=== PATIENT | female | born 1950 | race Caucasian/White ===

== ENCOUNTER 2020-06-04 20:41 | Observation (INO) | payer BC, MEDICARE ==
--- NOTE | 2020-06-04 21:10 | EDM.PDOC ---
ED HPI GENERAL MEDICAL PROBLEM - General Chief Complaint: Gastrointestinal Problem Time Seen by Provider: 06/04/20 21:01 Source of Information: Reports: Patient, EMS History Limitations: Reports: No Limitations - History of Present Illness INITIAL COMMENTS - FREE TEXT/NARRATIVE: Patient presents by ambulance from her cabin in the area describing nausea and vomiting for the last 48 hours. She is visiting the area from her home in [place]. She and her son were here although he went home on Monday. Her symptoms were not as bad when he departed for home that have progressed since then. She has not really had any food to eat for the last 2 days she has tried minimal amounts of liquid and does not have large-scale vomiting anymore but has frequent retching sensation and generally small amounts of mucus production at this point. No diarrhea but she is had softer stools. She does not think she has been feverish but the cabin she stays in is not well insulated. Principally because of lack of improvement, she contacted 911 who transported her here tonight. Onset: Gradual Duration: Day(s): (4) Location: Reports: Abdomen Associated Symptoms: Reports: Nausea/Vomiting denies pain Pain Score (Numeric/FACES): 0 - Related Data Allergies Allergy/AdvReac Type Severity Reaction Status Date / Time codeine Allergy Stomach Verified 06/04/20 20:51 Ache gabapentin [From Neurontin] Allergy Disorientat Verified 06/04/20 20:51 ion Home Meds: Home Meds Cyclobenzaprine HCl 5 mg PO ASDIRECTED PRN 06/04/20 [History] Dulaglutide [Trulicity] 1 injection SUBCUT WEEKLY 06/04/20 [History] Pregabalin [Lyrica] 300 mg PO BID 06/04/20 [History] Spironolactone [Aldactone] 50 mg PO BID 06/04/20 [History] Zolpidem [Ambien] 2.5 mg PO ASDIRECTED PRN 06/04/20 [History] atorvaSTATin [Lipitor] 20 mg PO DAILY 06/04/20 [History] glipiZIDE [Glucotrol XL] 5 mg PO BID 06/04/20 [History] metFORMIN [Glucophage] 1,000 mg PO DAILY 06/04/20 [History] Past Medical History Cardiovascular History: Reports: Heart Murmur Respiratory History: Reports: PE Gastrointestinal History: Reports: Cholelithiasis 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 Denies: Fever, Chills HEENT: Reports: No Symptoms Respiratory: Reports: No Symptoms Cardiovascular: Reports: Lightheadedness GI/Abdominal: Reports: Nausea, Vomiting. Denies: Black Stool, Bloody Stool, Diarrhea (She describes soft stools but no diarrhea.) ED EXAM, GI/ABD - Physical Exam Exam: See Below Exam Limited By: No Limitations General Appearance: Alert, Mild Distress Head: Atraumatic Neck: Supple Respiratory/Chest: Lungs Clear Cardiovascular: Bradycardia GI/Abdominal Exam: Soft, Tender (Diffuse), Abnormal Bowel Sounds (Diminished.). No: Distended, Rigid, Mass Extremities: Normal Range of Motion Course - Vital Signs Last Recorded V/S: Last Vital Signs Temp 36.4 C 06/04/20 21:00 Pulse 53 L 06/04/20 21:42 Resp 17 06/04/20 21:00 BP 181/60 H 06/04/20 21:42 Pulse Ox 99 06/04/20 21:42 - Orders/Labs/Meds Orders: Active Orders 24 hr Category Date Time Status Abdomen 1V Upright [CR] Stat Exams 06/04/20 22:28 Ordered Sodium Chloride 0.9% [Normal Saline] 1,000 ml Med 06/04/20 22:40 Ordered IV .BOLUS Sodium Chloride 0.9% [Saline Flush] Med 06/04/20 21:30 Ordered 10 ml FLUSH ASDIRECTED PRN Saline Lock Insert [OM.PC] Routine Oth 06/04/20 21:30 Ordered Medication Orders Sodium Chloride (Normal Saline) 1,000 mls @ 999 mls/hr IV .BOLUS ONE Stop: 06/04/20 23:40 Sodium Chloride (Saline Flush) 10 ml FLUSH ASDIRECTED PRN PRN Reason: Keep Vein Open Last Admin: 06/04/20 21:46 Dose: 10 ml Documented by: Labs: Laboratory Tests 06/04/20 06/04/20 Range/Units 21:30 21:30 WBC 12.0 H (4.5-11.0) K/uL RBC 5.20 (3.30-5.50) M/uL Hgb 15.3 H (12.0-15.0) g/dL Hct 45.5 (36.0-48.0) % MCV 88 (80-98) fL MCH 29 (27-31) pg MCHC 34 (32-36) % Plt Count 348 (150-400) K/uL Neut % (Auto) 68 H (36-66) % Lymph % (Auto) 25 (24-44) % Long % (Auto) 7 H (2-6) % Eos % (Auto) 0 L (2-4) % Baso % (Auto) 0 (0-1) % Sodium 140 (140-148) mmol/L Potassium 4.1 (3.6-5.2) mmol/L Chloride 100 (100-108) mmol/L Carbon Dioxide 21 (21-32) mmol/L Anion Gap 18.7 H (5.0-14.0) mmol/L BUN 25 H (7-18) mg/dL Creatinine 1.3 H (0.6-1.0) mg/dL Est Cr Clr Drug Dosing 34.26 mL/min Estimated GFR (MDRD) 41 L (>60) Glucose 195 H (74-106) mg/dL Calcium 9.9 (8.5-10.1) mg/dL Total Bilirubin 1.2 H (0.2-1.0) mg/dL AST 93 H (15-37) U/L ALT 60 (12-78) U/L Alkaline Phosphatase 67 (46-116) U/L Total Protein 8.1 (6.4-8.2) g/dL Albumin 4.0 (3.4-5.0) g/dL Globulin 4.1 H (2.3-3.5) g/dL Albumin/Globulin Ratio 1.0 L (1.2-2.2) Lipase 170 (73-393) U/L Meds: Medications Generic Name Dose Route Start Last Admin Trade Name Freq PRN Reason Stop Dose Admin Sodium Chloride 1,000 mls @ 999 mls/hr 06/04/20 22:40 Normal Saline IV 06/04/20 23:40 .BOLUS ONE Sodium Chloride 10 ml 06/04/20 21:30 06/04/20 21:46 Saline Flush FLUSH 10 ml ASDIRECTED PRN Administration Keep Vein Open Discontinued Medications Generic Name Dose Route Start Last Admin Trade Name Theodore PRN Reason Stop Dose Admin Famotidine 20 mg 06/04/20 21:51 06/04/20 22:01 Pepcid IVPUSH 06/04/20 21:52 20 mg ONETIME ONE Administration Sodium Chloride 1,000 mls @ 999 mls/hr 06/04/20 21:30 06/04/20 21:39 Normal Saline IV 06/04/20 22:30 999 mls/hr .BOLUS ONE Administration Ondansetron HCl 4 mg 06/04/20 21:31 06/04/20 21:45 Zofran IVPUSH 06/04/20 21:32 4 mg ONETIME ONE Administration Ondansetron HCl 4 mg 06/04/20 22:44 Zofran IVPUSH 06/04/20 22:45 ONETIME ONE - Re-Assessments/Exams Free Text/Narrative Re-Assessment/Exam: 06/04/20 21:33 Patient will receive normal saline 1 L by rapid infusion along with ondansetron 4 mg and famotidine 20 mg IV. 06/04/20 21:51 06/04/20 22:29 Heartburn feelings have improved following medication but she still has nausea and will cough/vomit up small amounts of mucus. No projectile vomiting. She is slightly dehydrated by lab evaluation. We will obtain an upright abdomen x-ray to look for overall bowel gas pattern although she does not classically seem like a bowel obstruction. 06/04/20 22:48 I discussed imaging results which do not show any obvious air-fluid levels. There is some scattered pocketing of gas throughout the bowel but nothing alarming appearing. Nausea is only slightly improved so I will give her another 4 mg of ondansetron. I think she will benefit from admission for further hydration and symptom control. Reviewed admission with hospital service to arrange admit and further care. Departure - Departure Time of Disposition: 22:50 Disposition: Admitted As Inpatient 67 Clinical Impression: Vomiting - Discharge Information Referrals: PCP,None [Primary Care Provider] - Forms: ED Department Discharge Sepsis Event Note (ED) - Evaluation Sepsis Screening Result: No Definite Risk - Focused Exam Vital Signs: Vital Signs Temp Pulse Resp BP Pulse Ox 06/04/20 21:42 53 L 181/60 H 99 06/04/20 21:00 36.4 C 55 L 17 122/70 99 06/04/20 20:58 36.4 C 55 L 17 122/70 99 - My Orders Last 24 Hours: My Active Orders 06/04/20 21:30 Sodium Chloride 0.9% [Saline Flush] 10 ml FLUSH ASDIRECTED PRN Saline Lock Insert [OM.PC] Routine 06/04/20 22:28 Abdomen 1V Upright [CR] Stat 06/04/20 22:40 Sodium Chloride 0.9% [Normal Saline] 1,000 ml IV .BOLUS - Assessment/Plan Last 24 Hours: My Active Orders 06/04/20 21:30 Sodium Chloride 0.9% [Saline Flush] 10 ml FLUSH ASDIRECTED PRN Saline Lock Insert [OM.PC] Routine 06/04/20 22:28 Abdomen 1V Upright [CR] Stat 06/04/20 22:40 Sodium Chloride 0.9% [Normal Saline] 1,000 ml IV .BOLUS
[2020-06-04] MEDS ORDERED: Sodium Chloride 0.9% 10 ML Syringe FLUSH PRN (21:30)
[2020-06-04] MEDS ORDERED: Sodium Chloride 0.9% 1,000 ML IV ONE ×2 (21:30→22:40)
[2020-06-04] MEDS ORDERED: Ondansetron 4 MG/2 ML SDV IVPUSH ONE ×2 (21:31→22:44)
[2020-06-04] MEDS ORDERED: Famotidine 20 MG/2 ML SDV IVPUSH ONE (21:51)
[2020-06-04] MEDS ORDERED: Acetaminophen 325 MG Tab PO PRN (23:45)
[2020-06-04] MEDS ORDERED: Zolpidem 5 MG Tab PO PRN (23:45)
[2020-06-04] MEDS ORDERED: Morphine 2 MG/ML SYRINGE IVPUSH PRN (23:45)
[2020-06-04] MEDS ORDERED: Ondansetron 4 MG Tab.DIS PO PRN (23:45)
[2020-06-04] MEDS ORDERED: Albuterol 0.083% 2.5 MG/3 ML Neb Soln NEB PRN (23:45)
[2020-06-04] MEDS ORDERED: Docusate Sodium 100 MG Cap PO PRN (23:45)
[2020-06-04] MEDS ORDERED: oxyCODONE 5 MG Tab PO PRN (23:45)
[2020-06-04] MEDS ORDERED: Ondansetron 4 MG/2 ML SDV IV PRN (23:45)
--- NOTE | 2020-06-05 00:05 | PCM.HP.2 ---
H&P History of Present Illness - General Date of Service: 06/04/20 Admit Problem/Dx: Admission Diagnosis/Problem Admission Diagnosis/Problem Dehydration Source of Information: Patient, Provider, RN History Limitations: Reports: No Limitations - History of Present Illness Initial Comments - Free Text/Narative: chief compliant: nausea and vomiting for 2 days This is a 69 year old female present to the ER for nausea and vomiting. She report just starting vomiting late Monday and hasn't stopped. Last meal two days ago has not taking her medications except for half a Metformin. She lives in [facility] and has a summer cabin in the area. Onset of Symptoms: Reports: Gradual Symptom Onset Date: 06/02/20 Duration of Symptoms: Reports: Getting Worse Location: Reports: Abdomen (nausea and vomiting), Generalized Severity: Moderate Improves with: Reports: None Worsens with: Reports: Eating Context: Reports: Other (nausea and vomiting) Associated Symptoms: Reports: Loss of Appetite, Nausea/Vomiting, Weakness denies pain Pain Score (Numeric/FACES): 0 - Related Data Allergies/Adverse Reactions: Allergies Allergy/AdvReac Type Severity Reaction Status Date / Time codeine Allergy Stomach Verified 06/04/20 20:51 Ache gabapentin [From Neurontin] Allergy Disorientat Verified 06/04/20 20:51 ion Home Medications: Home Meds Cyclobenzaprine HCl 5 mg PO ASDIRECTED PRN 06/04/20 [History] Dulaglutide [Trulicity] 1 injection SUBCUT WEEKLY 06/04/20 [History] Pregabalin [Lyrica] 300 mg PO BID 06/04/20 [History] Spironolactone [Aldactone] 50 mg PO BID 06/04/20 [History] Zolpidem [Ambien] 2.5 mg PO ASDIRECTED PRN 06/04/20 [History] atorvaSTATin [Lipitor] 20 mg PO DAILY 06/04/20 [History] glipiZIDE [Glucotrol XL] 5 mg PO BID 06/04/20 [History] metFORMIN [Glucophage] 1,000 mg PO DAILY 06/04/20 [History] Past Medical History HEENT History: Reports: Cataract Cardiovascular History: Reports: Heart Murmur Respiratory History: Reports: PE Gastrointestinal History: Reports: Cholelithiasis 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: Neurological History: Reports: Neuropathy, Peripheral Endocrine/Metabolic History: Reports: Diabetes, Type II - Infectious Disease History Infectious Disease History: Reports: Chicken Pox, Measles, Rubella - Past Surgical History GI Surgical History: Reports: Appendectomy, Bariatric Procedure, Cholecystectomy, Colonoscopy Female Surgical History: Reports: Tubal Ligation Musculoskeletal Surgical History: Reports: Arthroscopic Knee, Knee Replacement Social & Family History - Tobacco Use Smoking Status *Q: Never Smoker Second Hand Smoke Exposure: No - Caffeine Use Caffeine Use: Reports: Coffee, Soda - Recreational Drug Use Recreational Drug Use: No - Living Situation & Occupation Living situation: Reports: Occupation: Retired (Lives in [place], [place]. has summer cabin in the area. , Her who was a ER Doctor of cancer at age 59 yrs. She is a retired [employer], has 4 adult Children.) H&P Review of Systems - Review of Systems: Review Of Systems: See Below General: Reports: Weakness, Fatigue, Decreased Appetite HEENT: Reports: Glasses (has reading glasses), Sinus Congestion (chronic), Sore Throat (from vomiting) Pulmonary: Reports: No Symptoms Cardiovascular: Reports: Other (has a murmur, had a complete cardiac workup in November 2019 including angiogram-all normal) Gastrointestinal: Reports: Nausea, Vomiting, Other (hx of gastric bypass about 20 years ago.) Genitourinary: Reports: No Symptoms Musculoskeletal: Reports: Other (arthritis) Skin: Reports: No Symptoms Psychiatric: Reports: No Symptoms Neurological: Reports: Pre-Existing Deficit (diabetic neuropathy of feet) Hematologic/Lymphatic: Reports: No Symptoms Immunologic: Reports: No Symptoms Exam - Exam Exam: See Below - Vital Signs Vital Signs: Last Vital Signs Temp 36.6 C 06/04/20 23:45 Pulse 98 06/04/20 23:45 Resp 16 06/04/20 23:45 BP 145/70 H 06/04/20 23:45 Pulse Ox 97 06/04/20 23:45 Weight: 80.558 kg - Exam Quality Assessment: DVT Prophylaxis General: Alert, Oriented, Cooperative, Mild Distress, Other (frail appearance, laying on left side, with emesis bag. ) HEENT: Conjunctiva Clear, EOMI, Hearing Intact, Nares Patent Neck: Supple, Trachea Midline Lungs: Clear to Auscultation, Normal Respiratory Effort Cardiovascular: Regular Rate, Regular Rhythm, Normal S1, Normal S2, Other (murmur present) GI/Abdominal Exam: Normal Bowel Sounds, Soft, Non-Tender, No Distention (Female) Exam: Deferred Rectal (Female) Exam: Deferred Back Exam: Normal Inspection, Full Range of Motion Extremities: Normal Inspection, Normal Range of Motion, Non-Tender, No Pedal Edema, Normal Capillary Refill Peripheral Pulses: 2+: Radial (L), Radial (R) Skin: Warm, Dry, Intact Neurological: Strength Equal Bilateral, Normal Speech, Normal Tone Neuro Extensive - Mental Status: Alert, Oriented x3, Normal Mood/Affect Neuro Extensive - Motor, Sensory, Reflexes: CN II-XII Intact Psychiatric: Alert, Normal Affect, Normal Mood - Patient Data Lab Results Last 24 hrs: Laboratory Results - last 24 hr 06/04/20 06/04/20 06/04/20 Range/Units 21:30 21:30 23:43 WBC 12.0 H (4.5-11.0) K/uL RBC 5.20 (3.30-5.50) M/uL Hgb 15.3 H (12.0-15.0) g/dL Hct 45.5 (36.0-48.0) % MCV 88 (80-98) fL MCH 29 (27-31) pg MCHC 34 (32-36) % Plt Count 348 (150-400) K/uL Neut % (Auto) 68 H (36-66) % Lymph % (Auto) 25 (24-44) % [place] % (Auto) 7 H (2-6) % Eos % (Auto) 0 L (2-4) % Baso % (Auto) 0 (0-1) % Sodium 140 (140-148) mmol/L Potassium 4.1 (3.6-5.2) mmol/L Chloride 100 (100-108) mmol/L Carbon Dioxide 21 (21-32) mmol/L Anion Gap 18.7 H (5.0-14.0) mmol/L BUN 25 H (7-18) mg/dL Creatinine 1.3 H (0.6-1.0) mg/dL Est Cr Clr Drug Dosing 34.26 mL/min Estimated GFR (MDRD) 41 L (>60) Glucose 195 H (74-106) mg/dL Calcium 9.9 (8.5-10.1) mg/dL Total Bilirubin 1.2 H (0.2-1.0) mg/dL AST 93 H (15-37) U/L ALT 60 (12-78) U/L Alkaline Phosphatase 67 (46-116) U/L Total Protein 8.1 (6.4-8.2) g/dL Albumin 4.0 (3.4-5.0) g/dL Globulin 4.1 H (2.3-3.5) g/dL Albumin/Globulin Ratio 1.0 L (1.2-2.2) Lipase 170 (73-393) U/L Urine Color Yellow (YELLOW) Urine Appearance Slightly cloudy A (CLEAR) Urine pH 5.5 (5.0-8.0) Ur Specific [place] 1.025 (1.008-1.030) Urine Protein Negative (NEGATIVE) mg/dL Urine Glucose (UA) Negative (NEGATIVE) mg/dL Urine Ketones 15 H (NEGATIVE) mg/dL Urine Occult Blood Trace-lysed H (NEGATIVE) Urine Nitrite Positive H (NEGATIVE) Urine Bilirubin Negative (NEGATIVE) Urine Urobilinogen 0.2 (0.2-1.0) EU/dL Ur Leukocyte Esterase Trace H (NEGATIVE) Urine RBC 0-5 (0-5) Urine WBC 0-5 (0-5) Ur Epithelial Cells Few Amorphous Sediment Rare Urine Bacteria Many Urine Mucus Not seen Result Diagrams: 06/04/20 21:30 06/04/20 21:30 Sepsis Event Note - Evaluation Sepsis Screening Result: No Definite Risk - Focused Exam Vital Signs: Vital Signs Temp Pulse Resp BP Pulse Ox 06/04/20 23:45 36.6 C 98 16 145/70 H 97 06/04/20 23:18 74 151/57 H 95 06/04/20 21:42 53 L 181/60 H 99 06/04/20 21:00 36.4 C 55 L 17 122/70 99 06/04/20 20:58 36.4 C 55 L 17 122/70 99 - Problem List (1) Acute dehydration SNOMED Code(s): 89108572, 92640593 ICD Code: E86.0 - DEHYDRATION Status: Acute Priority: High Current Visit: Yes (2) Diabetes mellitus type 2, noninsulin dependent SNOMED Code(s): 72872279 ICD Code: E11.9 - TYPE 2 DIABETES MELLITUS WITHOUT COMPLICATIONS Status: Acute Priority: High Current Visit: Yes (3) Urinary tract infection SNOMED Code(s): 24837156 ICD Code: N39.0 - URINARY TRACT INFECTION, SITE NOT SPECIFIED Status: Acute Priority: High Current Visit: Yes Qualifiers: Urinary tract infection type: acute cystitis Hematuria presence: without hematuria Qualified Code(s): N30.00 - Acute cystitis without hematuria (4) Hx of gastric bypass SNOMED Code(s): 807505234 ICD Code: Z98.84 - BARIATRIC SURGERY STATUS Status: Acute Priority: Low Current Visit: Yes Problem List Initiated/Reviewed/Updated: Yes Orders Last 24hrs: Active Orders 24 hr Category Date Time Status Cardiac Monitoring [RC] CONTINUOUS Care 06/04/20 23:45 Active Intake and Output [RC] QSHIFT Care 06/04/20 23:45 Active Notify Provider Vital Signs [RC] ASDIRECTED Care 06/04/20 23:45 Active Oxygen Therapy [RC] PRN Care 06/04/20 23:45 Active Pulse Oximetry [RC] PRN Care 06/04/20 23:45 Active RT Aerosol Therapy [RC] ASDIRECTED Care 06/04/20 23:45 Active Up ad Yary [RC] ASDIRECTED Care 06/04/20 23:45 Active Vital Signs [RC] Q4H Care 06/04/20 23:45 Active Clear Liquid Diet [DIET] Diet 06/04/20 Breakfast Active Abdomen 1V Upright [CR] Stat Exams 06/04/20 22:28 Taken BASIC METABOLIC PANEL,BMP [CHEM] AM Lab 06/05/20 05:11 Ordered CBC WITH AUTO DIFF [HEME] AM Lab 06/05/20 05:11 Ordered GLUCOSE POC LAB TO COLLECT JPM [POC] QIDACANDBED Lab 06/05/20 07:30 Ordered Acetaminophen [TylenoL] Med 06/04/20 23:45 Ordered 650 mg PO Q4H PRN Albuterol [Proventil Neb Soln] Med 06/04/20 23:45 Ordered 2.5 mg NEB Q4H PRN Docusate Sodium [Colace] Med 06/04/20 23:45 Ordered 100 mg PO BID PRN Enoxaparin [Lovenox] Med 06/05/20 09:00 Ordered 30 mg SUBCUT DAILY Morphine Med 06/04/20 23:45 Ordered 2 mg IVPUSH Q2H PRN Ondansetron [Zofran ODT] Med 06/04/20 23:45 Ordered 4 mg PO Q6H PRN Ondansetron [Zofran] Med 06/04/20 23:45 Ordered 4 mg IV Q4H PRN Pregabalin [Lyrica] Med 06/05/20 09:00 Ordered 300 mg PO BID Sodium Chloride 0.9% [Normal Saline] 1,000 ml Med 06/04/20 23:45 Ordered IV ASDIRECTED Sodium Chloride 0.9% [Saline Flush] Med 06/04/20 21:30 Active 10 ml FLUSH ASDIRECTED PRN Spironolactone [Aldactone] Med 06/05/20 09:00 Ordered 50 mg PO BID Zolpidem [Ambien] Med 06/04/20 23:45 Ordered 2.5 mg PO ASDIRECTED PRN glipiZIDE [Glucotrol XL] Med 06/05/20 09:00 Ordered 5 mg PO BID oxyCODONE Med 06/04/20 23:45 Ordered 5 mg PO Q4H PRN Saline Lock Insert [OM.PC] Routine Oth 06/04/20 21:30 Ordered Resuscitation Status Routine Resus Stat 06/04/20 23:00 Ordered Medication Orders Acetaminophen (Tylenol) 650 mg PO Q4H PRN PRN Reason: Pain (Mild 1-3)/fever Albuterol (Proventil Neb Soln) 2.5 mg NEB Q4H PRN PRN Reason: Shortness Of Breath/wheezing Docusate Sodium (Colace) 100 mg PO BID PRN PRN Reason: Constipation Enoxaparin Sodium (Lovenox) 30 mg SUBCUT DAILY GINO Glipizide (Glucotrol Xl) 5 mg PO BID GINO Sodium Chloride (Normal Saline) 1,000 mls @ 125 mls/hr IV ASDIRECTED GINO Morphine Sulfate (Morphine) 2 mg IVPUSH Q2H PRN PRN Reason: Pain (severe 7-10) Non-Formulary Medication (Pregabalin [Lyrica]) 300 mg PO BID GINO Non-Formulary Medication (Spironolactone [Aldactone]) 50 mg PO BID GINO Ondansetron HCl (Zofran Odt) 4 mg PO Q6H PRN PRN Reason: Nausea able to take PO Ondansetron HCl (Zofran) 4 mg IV Q4H PRN PRN Reason: Nausea/Vomiting Oxycodone HCl (Oxycodone) 5 mg PO Q4H PRN PRN Reason: Pain (moderate 4-6) Sodium Chloride (Saline Flush) 10 ml FLUSH ASDIRECTED PRN PRN Reason: Keep Vein Open Last Admin: 06/04/20 21:46 Dose: 10 ml Documented by: SITZMEL Zolpidem Tartrate (Ambien) 2.5 mg PO ASDIRECTED PRN PRN Reason: Insomnia Assessment/Plan Comment:: Assessment/Plan Comment:: ASSESSMENT AND PLAN - DEHYDRATION WITH NAUSEA AND VOMITING. Patient presents by ambulance from her cabin in the area describing nausea and vomiting for the last 48 hours. She is visiting the area from her home in [place]. She and her son were here although he went home on Monday. Her symptoms were not as bad when he departed for home that have progressed since then. She has not really had any food to eat for the last 2 days she has tried minimal amounts of liquid and does not have large-scale vomiting anymore but has frequent retching sensation and generally small amounts of mucus production at this point. No diarrhea but she is had softer stools. She does not think she has been feverish but the cabin she stays in is not well insulated. Principally because of lack of improvement, she contacted 911 who [facility]. Onset: ER COURSE Heartburn feelings have improved following medication but she still has nausea and will cough/vomit up small amounts of mucus. No projectile vomiting. She is slightly dehydrated by lab evaluation. We will obtain an upright abdomen x-ray to look for overall bowel gas pattern although she does not classically seem like a bowel obstruction. 06/04/20 22:48 I discussed imaging results which do not show any obvious air-fluid levels. There is some scattered pocketing of gas throughout the bowel but nothing alarming appearing. Nausea is only slightly improved so I will give her another 4 mg of ondansetron. I think she will benefit from admission for further hydration and symptom control. Reviewed admission with hospital service to arrange admit and further care. DEHYDRATION WITH NAUSEA AND VOMITING -Pain and nausea medication as needed -IV Pepcid 20 mg daily -IV fluids Normal Saline 125 ml/hr. -am labs CBC, BMP URINARY TRACT INFECTION -Rocephin 1 gram every 24 hours -urine culture pending -IV fluids at 125ml/hr HX OF GASTRIC BYPASS -monitor DIABETES TYPE 2- has not taken medication for two days due to nausea and vomiting. -blood glucose before meals and at bedtime -am labs BMP MAINTENANCE ISSUES -DVT prophylaxis- Lovenox 30 mg subcut daily -GI prophylaxis- IV Pepcid 20 mg daily -Bhagat catheter- not indicated -Nutrition- consistent clear liquid advance as tolerated to a carb diet -Nicotine dependence- Nicotine patch CODE STATUS-FULL CODE ADMISSION STATUS-[facility] - this patient will be admitted to observation status, expect no more than a two night hospital stay for evaluation and management of problems as outlined above. DISPOSITION-anticipate discharge to home after the hospital stay. PRIMARY CARE [id number] HOSPITALIST- Dr. Torres - Mortality Measure Prognosis:: Good - Mortality Measure Prognosis:: Good
[2020-06-05] MEDS ORDERED: LORazepam 2 MG/ML SDV IVPUSH PRN (00:07)
[2020-06-05] MEDS: Zolpidem 5 MG Tab PO PRN ×2 (00:50→22:03)
[2020-06-05] MEDS: Sodium Chloride 0.9% 1,000 ML IV SCH ×3 (00:50→16:57)
[2020-06-05] MEDS ORDERED: cefTRIAXone 1 GM Vial IM ONE (01:00)
[2020-06-05] MEDS: Spironolactone 25 MG Tab PO SCH ×2 (08:49→15:42)
[2020-06-05] MEDS: glipiZIDE 5 MG Tab PO SCH ×2 (08:55→21:15)
[2020-06-05] MEDS: Pregabalin 100 MG Cap PO SCH ×2 (08:56→20:33)
[2020-06-05] MEDS: Enoxaparin 40 MG/0.4 ML Syringe SUBCUT SCH (08:57)
[2020-06-05] MEDS ORDERED: glipiZIDE 5 MG Tab.ER PO SCH (09:00)
--- NOTE | 2020-06-05 09:26 | CR ---
Abdomen 1V Upright CLINICAL HISTORY: Vomiting FINDINGS: There is some breathing motion the upper abdomen. Small intestinal configuration is nonacute. There are surgical clips and sutures in the upper abdomen. There is a linear irregular density in the region of the stomach that appears postsurgical. There are splenic granulomata. There is a calcific-like densities overlying both kidneys. There is a vague calcific-like density to the right of the pubic symphysis which could be calcification in the bladder IMPRESSION: Nonspecific intestinal gas pattern Previous upper abdominal surgery linear density in the epigastric region may be a suture line related to gastric surgery. Clinical correlation necessary Vague 3 cm calcific like density to the right of the pubic symphysis could be a bladder stone Renal calculi Granulomas calcifications in the spleen
[2020-06-05] MEDS ORDERED: Potassium Chloride 20 MEQ Tab.ER PO ONE (10:30)
--- NOTE | 2020-06-05 11:58 | PCM.PN ---
- General Info Date of Service: 06/05/20 Subjective Update: No acute events overnight. No vomiting this morning but she does still have some nausea. She is feeling a fair amount better. Energy is better. Still not much of an appetite. No fevers. Vital signs have been stable. Cultures are pending. Moderate elevation of blood sugars. Functional Status: Reports: Pain Controlled, Tolerating Diet - Review of Systems General: Denies: Fever Gastrointestinal: Reports: Nausea - Patient Data Vitals - Most Recent: Last Vital Signs Temp 36.8 C 06/05/20 11:13 Pulse 66 06/05/20 11:13 Resp 14 06/05/20 11:13 BP 119/62 06/05/20 11:13 Pulse Ox 97 06/05/20 11:13 Weight - Most Recent: 80.558 kg I&O - Last 24 Hours: Intake & Output 06/04/20 06/05/20 06/05/20 22:59 06:59 14:59 Intake Total 300 200 Output Total 100 250 Balance 200 -50 Lab Results Last 24 Hours: Laboratory Results - last 24 hr 06/04/20 06/04/20 06/04/20 Range/Units 21:30 21:30 23:43 WBC 12.0 H (4.5-11.0) K/uL RBC 5.20 (3.30-5.50) M/uL Hgb 15.3 H (12.0-15.0) g/dL Hct 45.5 (36.0-48.0) % MCV 88 (80-98) fL MCH 29 (27-31) pg MCHC 34 (32-36) % Plt Count 348 (150-400) K/uL Neut % (Auto) 68 H (36-66) % Lymph % (Auto) 25 (24-44) % [place] % (Auto) 7 H (2-6) % Eos % (Auto) 0 L (2-4) % Baso % (Auto) 0 (0-1) % Sodium 140 (140-148) mmol/L Potassium 4.1 (3.6-5.2) mmol/L Chloride 100 (100-108) mmol/L Carbon Dioxide 21 (21-32) mmol/L Anion Gap 18.7 H (5.0-14.0) mmol/L BUN 25 H (7-18) mg/dL Creatinine 1.3 H (0.6-1.0) mg/dL Est Cr Clr Drug Dosing 34.26 mL/min Estimated GFR (MDRD) 41 L (>60) Glucose 195 H (74-106) mg/dL POC Glucose (74-106) MG/DL Calcium 9.9 (8.5-10.1) mg/dL Total Bilirubin 1.2 H (0.2-1.0) mg/dL AST 93 H (15-37) U/L ALT 60 (12-78) U/L Alkaline Phosphatase 67 (46-116) U/L Total Protein 8.1 (6.4-8.2) g/dL Albumin 4.0 (3.4-5.0) g/dL Globulin 4.1 H (2.3-3.5) g/dL Albumin/Globulin Ratio 1.0 L (1.2-2.2) Lipase 170 (73-393) U/L Urine Color Yellow (YELLOW) Urine Appearance Slightly cloudy A (CLEAR) Urine pH 5.5 (5.0-8.0) Ur Specific [place] 1.025 (1.008-1.030) Urine Protein Negative (NEGATIVE) mg/dL Urine Glucose (UA) Negative (NEGATIVE) mg/dL Urine Ketones 15 H (NEGATIVE) mg/dL Urine Occult Blood Trace-lysed H (NEGATIVE) Urine Nitrite Positive H (NEGATIVE) Urine Bilirubin Negative (NEGATIVE) Urine Urobilinogen 0.2 (0.2-1.0) EU/dL Ur Leukocyte Esterase Trace H (NEGATIVE) Urine RBC 0-5 (0-5) Urine WBC 0-5 (0-5) Ur Epithelial Cells Few Amorphous Sediment Rare Urine Bacteria Many Urine Mucus Not seen 06/05/20 06/05/20 06/05/20 Range/Units 04:29 04:29 07:30 WBC 9.9 (4.5-11.0) K/uL RBC 4.51 (3.30-5.50) M/uL Hgb 13.1 D (12.0-15.0) g/dL Hct 40.2 (36.0-48.0) % MCV 89 (80-98) fL MCH 29 (27-31) pg MCHC 33 (32-36) % Plt Count 296 (150-400) K/uL Neut % (Auto) 65 (36-66) % Lymph % (Auto) 28 (24-44) % Barber % (Auto) 8 H (2-6) % Eos % (Auto) 0 L (2-4) % Baso % (Auto) 0 (0-1) % Sodium 142 (140-148) mmol/L Potassium 3.4 L (3.6-5.2) mmol/L Chloride 105 (100-108) mmol/L Carbon Dioxide 24 (21-32) mmol/L Anion Gap 16.4 H (5.0-14.0) mmol/L BUN 21 H (7-18) mg/dL Creatinine 1.1 H (0.6-1.0) mg/dL Est Cr Clr Drug Dosing 40.49 mL/min Estimated GFR (MDRD) 49 L (>60) Glucose 195 H (74-106) mg/dL POC Glucose 153 H (74-106) MG/DL Calcium 8.1 L D (8.5-10.1) mg/dL Total Bilirubin (0.2-1.0) mg/dL AST (15-37) U/L ALT (12-78) U/L Alkaline Phosphatase (46-116) U/L Total Protein (6.4-8.2) g/dL Albumin (3.4-5.0) g/dL Globulin (2.3-3.5) g/dL Albumin/Globulin Ratio (1.2-2.2) Lipase (73-393) U/L Urine Color (YELLOW) Urine Appearance (CLEAR) Urine pH (5.0-8.0) Ur Specific [place] (1.008-1.030) Urine Protein (NEGATIVE) mg/dL Urine Glucose (UA) (NEGATIVE) mg/dL Urine Ketones (NEGATIVE) mg/dL Urine Occult Blood (NEGATIVE) Urine Nitrite (NEGATIVE) Urine Bilirubin (NEGATIVE) Urine Urobilinogen (0.2-1.0) EU/dL Ur Leukocyte Esterase (NEGATIVE) Urine RBC (0-5) Urine WBC (0-5) Ur Epithelial Cells Amorphous Sediment Urine Bacteria Urine Mucus 06/05/20 Range/Units 11:30 WBC (4.5-11.0) K/uL RBC (3.30-5.50) M/uL Hgb (12.0-15.0) g/dL Hct (36.0-48.0) % MCV (80-98) fL MCH (27-31) pg MCHC (32-36) % Plt Count (150-400) K/uL Neut % (Auto) (36-66) % Lymph % (Auto) (24-44) % Barber % (Auto) (2-6) % Eos % (Auto) (2-4) % Baso % (Auto) (0-1) % Sodium (140-148) mmol/L Potassium (3.6-5.2) mmol/L Chloride (100-108) mmol/L Carbon Dioxide (21-32) mmol/L Anion Gap (5.0-14.0) mmol/L BUN (7-18) mg/dL Creatinine (0.6-1.0) mg/dL Est Cr Clr Drug Dosing mL/min Estimated GFR (MDRD) (>60) Glucose (74-106) mg/dL POC Glucose 168 H (74-106) MG/DL Calcium (8.5-10.1) mg/dL Total Bilirubin (0.2-1.0) mg/dL AST (15-37) U/L ALT (12-78) U/L Alkaline Phosphatase (46-116) U/L Total Protein (6.4-8.2) g/dL Albumin (3.4-5.0) g/dL Globulin (2.3-3.5) g/dL Albumin/Globulin Ratio (1.2-2.2) Lipase (73-393) U/L Urine Color (YELLOW) Urine Appearance (CLEAR) Urine pH (5.0-8.0) Ur Specific [place] (1.008-1.030) Urine Protein (NEGATIVE) mg/dL Urine Glucose (UA) (NEGATIVE) mg/dL Urine Ketones (NEGATIVE) mg/dL Urine Occult Blood (NEGATIVE) Urine Nitrite (NEGATIVE) Urine Bilirubin (NEGATIVE) Urine Urobilinogen (0.2-1.0) EU/dL Ur Leukocyte Esterase (NEGATIVE) Urine RBC (0-5) Urine WBC (0-5) Ur Epithelial Cells Amorphous Sediment Urine Bacteria Urine Mucus Med Orders - Current: Current Medications Acetaminophen (Tylenol) 650 mg PO Q4H PRN PRN Reason: Pain (Mild 1-3)/fever Albuterol (Proventil Neb Soln) 2.5 mg NEB Q4H PRN PRN Reason: Shortness Of Breath/wheezing Docusate Sodium (Colace) 100 mg PO BID PRN PRN Reason: Constipation Enoxaparin Sodium (Lovenox) 40 mg SUBCUT DAILY [facility] Last Admin: 06/05/20 08:57 Dose: 40 mg Documented by: Glipizide (Glucotrol) 5 mg PO BID [facility] Last Admin: 06/05/20 08:55 Dose: 5 mg Documented by: Lorazepam (Ativan) 1 mg IVPUSH Q6H PRN PRN Reason: Vomiting Last Admin: 06/05/20 00:50 Dose: 1 mg Documented by: Morphine Sulfate (Morphine) 2 mg IVPUSH Q2H PRN PRN Reason: Pain (severe 7-10) Ondansetron HCl (Zofran Odt) 4 mg PO Q6H PRN PRN Reason: Nausea able to take PO Last Admin: 06/05/20 07:51 Dose: 4 mg Documented by: Ondansetron HCl (Zofran) 4 mg IV Q4H PRN PRN Reason: Nausea/Vomiting Oxycodone HCl (Oxycodone) 5 mg PO Q4H PRN PRN Reason: Pain (moderate 4-6) Pregabalin (Lyrica) 300 mg PO BID [facility] Last Admin: 06/05/20 08:56 Dose: 300 mg Documented by: Sodium Chloride (Saline Flush) 10 ml FLUSH ASDIRECTED PRN PRN Reason: Keep Vein Open Last Admin: 06/04/20 21:46 Dose: 10 ml Documented by: Spironolactone (Aldactone) 50 mg PO BIDDIURETIC [facility] Last Admin: 06/05/20 08:49 Dose: Not Given Documented by: Zolpidem Tartrate (Ambien) 2.5 mg PO BEDTIME PRN PRN Reason: Insomnia Last Admin: 06/05/20 00:50 Dose: 2.5 mg Documented by: Discontinued Medications Ceftriaxone Sodium (Rocephin) 1 gm IM ONETIME ONE Stop: 06/05/20 01:01 Last Admin: 06/05/20 00:59 Dose: 1 gm Documented by: Ceftriaxone Sodium (Rocephin) 1 gm IM Q24H [facility] Famotidine (Pepcid) 20 mg IVPUSH ONETIME ONE Stop: 06/04/20 21:52 Last Admin: 06/04/20 22:01 Dose: 20 mg Documented by: Sodium Chloride (Normal Saline) 1,000 mls @ 999 mls/hr IV .BOLUS ONE Stop: 06/04/20 22:30 Last Admin: 06/04/20 21:39 Dose: 999 mls/hr Documented by: Sodium Chloride (Normal Saline) 1,000 mls @ 999 mls/hr IV .BOLUS ONE Stop: 06/04/20 23:40 Last Admin: 06/04/20 22:45 Dose: 999 mls/hr Documented by: Sodium Chloride (Normal Saline) 1,000 mls @ 125 mls/hr IV ASDIRECTED [facility] Last Admin: 06/05/20 08:47 Dose: 125 mls/hr Documented by: Ondansetron HCl (Zofran) 4 mg IVPUSH ONETIME ONE Stop: 06/04/20 21:32 Last Admin: 06/04/20 21:45 Dose: 4 mg Documented by: Ondansetron HCl (Zofran) 4 mg IVPUSH ONETIME ONE Stop: 06/04/20 22:45 Last Admin: 06/04/20 22:54 Dose: 4 mg Documented by: Potassium Chloride (Klor-Con M20) 40 meq PO ONETIME ONE Stop: 06/05/20 10:31 Last Admin: 06/05/20 11:13 Dose: 40 meq Documented by: Zolpidem Tartrate (Ambien) 2.5 mg PO ASDIRECTED PRN PRN Reason: Insomnia - Exam Quality Assessment: No: Supplemental Oxygen General: Alert, Oriented, Cooperative, No Acute Distress Lungs: Normal Respiratory Effort GI/Abdominal Exam: Soft, No Distention Extremities: No Pedal Edema Psy/Mental Status: Alert, Normal Affect Sepsis Event Note - Evaluation Sepsis Screening Result: No Definite Risk - Focused Exam Vital Signs: Vital Signs Temp Pulse Pulse Resp BP Pulse Ox 06/05/20 11:13 36.8 C 66 14 119/62 97 06/05/20 09:00 116/49 L 06/05/20 07:25 36.6 C 64 12 107/50 L 97 06/05/20 02:55 36.6 C 75 16 135/61 96 - Problem List Review Problem List Initiated/Reviewed/Updated: Yes - My Orders Last 24 Hours: My Active Orders 06/05/20 10:31 Discontinue Telemetry Monitoring [Cardiac Monitoring Discontinue] [RC] Click to Edit 06/05/20 12:00 Sodium Chloride 0.9% [Normal Saline] 1,000 ml IV ASDIRECTED 06/05/20 16:30 GLUCOSE POC LAB TO COLLECT JPM [POC] QIDACANDBED 06/05/20 21:00 GLUCOSE POC LAB TO COLLECT JPM [POC] QIDACANDBED cefTRIAXone [Rocephin] 1 gm IV Q24H 06/06/20 05:00 BASIC METABOLIC PANEL,BMP [CHEM] Timed 06/06/20 07:30 GLUCOSE POC LAB TO COLLECT JPM [POC] QIDACANDBED 06/06/20 11:30 GLUCOSE POC LAB TO COLLECT JPM [POC] QIDACANDBED 06/06/20 16:30 GLUCOSE POC LAB TO COLLECT JPM [POC] QIDACANDBED 06/06/20 21:00 GLUCOSE POC LAB TO COLLECT JPM [POC] QIDACANDBED 06/07/20 07:30 GLUCOSE POC LAB TO COLLECT JPM [POC] QIDACANDBED 06/07/20 11:30 GLUCOSE POC LAB TO COLLECT JPM [POC] QIDACANDBED 06/07/20 16:30 GLUCOSE POC LAB TO COLLECT JPM [POC] QIDACANDBED 06/07/20 21:00 GLUCOSE POC LAB TO COLLECT JPM [POC] QIDACANDBED 06/08/20 07:30 GLUCOSE POC LAB TO COLLECT JPM [POC] QIDACANDBED 06/08/20 11:30 GLUCOSE POC LAB TO COLLECT JPM [POC] QIDACANDBED 06/08/20 16:30 GLUCOSE POC LAB TO COLLECT JPM [POC] QIDACANDBED 06/08/20 21:00 GLUCOSE POC LAB TO COLLECT JPM [POC] QIDACANDBED 06/09/20 07:30 GLUCOSE POC LAB TO COLLECT JPM [POC] QIDACANDBED 06/09/20 11:30 GLUCOSE POC LAB TO COLLECT JPM [POC] QIDACANDBED 06/09/20 16:30 GLUCOSE POC LAB TO COLLECT JPM [POC] QIDACANDBED 06/09/20 21:00 GLUCOSE POC LAB TO COLLECT JPM [POC] QIDACANDBED 06/10/20 07:30 GLUCOSE POC LAB TO COLLECT JPM [POC] QIDACANDBED 06/10/20 11:30 GLUCOSE POC LAB TO COLLECT JPM [POC] QIDACANDBED 06/10/20 16:30 GLUCOSE POC LAB TO COLLECT JPM [POC] QIDACANDBED 06/10/20 21:00 GLUCOSE POC LAB TO COLLECT JPM [POC] QIDACANDBED 06/11/20 07:30 GLUCOSE POC LAB TO COLLECT JPM [POC] QIDACANDBED 06/11/20 11:30 GLUCOSE POC LAB TO COLLECT JPM [POC] QIDACANDBED 06/11/20 16:30 GLUCOSE POC LAB TO COLLECT JPM [POC] QIDACANDBED 06/11/20 21:00 GLUCOSE POC LAB TO COLLECT JPM [POC] QIDACANDBED - Plan Plan:: ASSESSMENT AND PLAN - Acute cystitis-manifestations including nausea and weakness as well as urinary urgency. Clinically doing better today and vitals have been stable. Still not much of an appetite and very poor intake. -Continue gentle fluids until intake improves -Continue ceftriaxone -Follow-up cultures -Advance diet as tolerated HX OF GASTRIC BYPASS -monitor DIABETES TYPE 2-blood sugars moderately elevated. -Continue home meds -Sliding scale insulin -blood glucose before meals and at bedtime MAINTENANCE ISSUES -DVT prophylaxis- Lovenox 30 mg subcut daily -GI prophylaxis-PPI -Nutrition- consistent clear liquid advance as tolerated to a carb diet -Nicotine dependence- Nicotine patch ADMISSION STATUS-OBSERVAITON - this patient will be admitted to observation status, expect no more than a two night hospital stay for evaluation and management of problems as outlined above. DISPOSITION-anticipate discharge to home after the hospital stay. Jose Juan Torres MD
[2020-06-05] MEDS ORDERED: Famotidine 20 MG Tab PO ONE (20:53)
[2020-06-05] MEDS ORDERED: cefTRIAXone 1 GM in Sodium Chloride 0.9% 50 ML IV SCH (21:00)
[2020-06-05] MEDS ORDERED: cefTRIAXone 1 GM Vial IM SCH (21:00)
[2020-06-05] MEDS ORDERED: cefTRIAXone 1 GM Vial IV SCH (21:00)
[2020-06-06] MEDS: Sodium Chloride 0.9% 1,000 ML IV SCH (07:03)
[2020-06-06] MEDS: glipiZIDE 5 MG Tab PO SCH (08:12)
[2020-06-06 08:15] VITALS: BP 130/43; PULSE 65
[2020-06-06] MEDS: Enoxaparin 40 MG/0.4 ML Syringe SUBCUT SCH (08:15)
[2020-06-06] MEDS: Pregabalin 100 MG Cap PO SCH (08:18)
[2020-06-06] MEDS ORDERED: Potassium Chloride 20 MEQ Tab.ER PO ONE ×2 (08:45→11:45)
--- NOTE | 2020-06-06 10:42 | PCM.DCSUM1 ---
Discharge Summary - Hospital Course Brief History: 69-year-old female with history of atw-ndrgpmd-[id number] diabetes mellitus and former gastric bypass who presented with nausea, vomiting and dehydration. She is admitted for management of presumed enteritis and possible urinary tract infection. Diagnosis: Stroke: No - Discharge Data Discharge Date: 06/06/20 Discharge Disposition: Home, Self-Care 01 Condition: Good - Referral to Home Health Primary Care Physician: PCP None - Discharge Diagnosis/Problem(s) (1) Other viral enteritis SNOMED Code(s): 29155284 ICD Code: A08.39 - OTHER VIRAL ENTERITIS Status: Acute Current Visit: Yes (2) Acute dehydration SNOMED Code(s): 82153857, 73537428 ICD Code: E86.0 - DEHYDRATION Status: Acute Priority: High Current Visit: Yes (3) Diabetes mellitus type 2, noninsulin dependent SNOMED Code(s): 57712897 ICD Code: E11.9 - TYPE 2 DIABETES MELLITUS WITHOUT COMPLICATIONS Status: Chronic Priority: High Current Visit: Yes (4) Hx of gastric bypass SNOMED Code(s): 337377434 ICD Code: Z98.84 - BARIATRIC SURGERY STATUS Status: Chronic Priority: Low Current Visit: Yes (5) Urinary tract infection SNOMED Code(s): 15426755 ICD Code: N39.0 - URINARY TRACT INFECTION, SITE NOT SPECIFIED Status: Ruled-out Priority: High Current Visit: Yes Qualifiers: Urinary tract infection type: acute cystitis Hematuria presence: without hematuria Qualified Code(s): N30.00 - Acute cystitis without hematuria - Patient Summary/Data Hospital Course: Andie presented to the emergency room with nausea as well as vomiting. She had poor intake for the couple of days prior to presentation. Work-up in the emergency room revealed a possible urinary tract infection but was otherwise fairly unremarkable. She was admitted to the hospital for symptomatic management with presumed enteritis. She did not have any diarrhea. Overnight following admission there were no acute issues and she was feeling a little better. She was still somewhat queasy so we continued clear liquids for the first part of the day. Ceftriaxone was continued as well with some concern for urinary tract infection. She progressed well throughout that day and overnight. On the morning of discharge she is feeling fairly well. She has been tolerating her diet. She has not had any fevers. The nausea and vomiting have resolved. Her urine culture grew out mixed rell so I am going to stop antibiotics at this point. Blood sugars have been well controlled. She feels well enough to go home. I believe she is safe for outpatient management since she is tolerating a diet and drinking plenty fluids. She has been up and walking around without difficulty. She will follow-up with her primary care as needed if symptoms do not continue to get better. - Patient Instructions Diet: Diabetic Diet Activity: As Tolerated Showering/Bathing: May Shower Notify Provider of: Fever, Increased Pain, Nausea and/or Vomiting Other/Special Instructions: 1. You were in the hospital for management of suspected viral enteritis with acute dehydration. Your condition has been improving with symptomatic management and IV fluids. At this time no additional specific treatment is required. You should slowly advance your diet from soft, bland and boring to a regular diabetic diet. Be sure to drink plenty of water each day with the goal of consuming 64 ounces of water. At the time of admission we thought you could possibly have a urinary tract infection but your urine culture is now growing a specific bacteria and no additional antibiotic treatment is needed at this time. 2. Continue your usual home medications as previously prescribed. - Discharge Plan *PRESCRIPTION DRUG MONITORING PROGRAM REVIEWED*: Not Applicable *COPY OF PRESCRIPTION DRUG MONITORING REPORT IN PATIENT PAMELA: Not Applicable Home Medications: Home Meds Cyclobenzaprine HCl 5 mg PO ASDIRECTED PRN 06/04/20 [History] Dulaglutide [Trulicity] 1 injection SUBCUT WEEKLY 06/04/20 [History] Pregabalin [Lyrica] 300 mg PO BID 06/04/20 [History] Spironolactone [Aldactone] 50 mg PO BID 06/04/20 [History] Zolpidem [Ambien] 2.5 mg PO ASDIRECTED PRN 06/04/20 [History] atorvaSTATin [Lipitor] 20 mg PO DAILY 06/04/20 [History] metFORMIN [Glucophage] 1,000 mg PO DAILY 06/04/20 [History] glipiZIDE [Glucotrol] 5 mg PO BIDMEALS 06/05/20 [History] Oxygen Therapy Mode: Room Air Patient Handouts: Potassium Content of Foods Referrals: PCP,None [Primary Care Provider] - (f/u as needed if symptoms do not continue to improve or if they get worse) - Discharge Summary/Plan Comment DC Time >30 min.: No - Patient Data Vitals - Most Recent: Last Vital Signs Temp 36.8 C 06/06/20 08:14 Pulse 65 06/06/20 08:14 Resp 18 06/06/20 08:14 BP 130/43 L 06/06/20 08:14 Pulse Ox 95 06/06/20 08:14 Weight - Most Recent: 80.558 kg I&O - Last 24 hours: Intake & Output 06/05/20 06/06/20 06/06/20 22:59 06:59 14:59 Intake Total 2488 1365 400 Output Total 450 Balance 2038 1365 400 Lab Results - Last 24 hrs: Laboratory Results - last 24 hr 06/05/20 06/05/20 06/05/20 Range/Units 11:30 16:52 21:09 Sodium (140-148) mmol/L Potassium (3.6-5.2) mmol/L Chloride (100-108) mmol/L Carbon Dioxide (21-32) mmol/L Anion Gap (5.0-14.0) mmol/L BUN (7-18) mg/dL Creatinine (0.6-1.0) mg/dL Est Cr Clr Drug Dosing mL/min Estimated GFR (MDRD) (>60) Glucose (74-106) mg/dL POC Glucose 168 H 93 178 H (74-106) MG/DL Calcium (8.5-10.1) mg/dL 06/06/20 06/06/20 Range/Units 04:10 07:30 Sodium 147 (140-148) mmol/L Potassium 3.6 (3.6-5.2) mmol/L Chloride 112 H (100-108) mmol/L Carbon Dioxide 23 (21-32) mmol/L Anion Gap 15.6 H (5.0-14.0) mmol/L BUN 16 (7-18) mg/dL Creatinine 1.0 (0.6-1.0) mg/dL Est Cr Clr Drug Dosing 44.52 mL/min Estimated GFR (MDRD) 55 L (>60) Glucose 96 (74-106) mg/dL POC Glucose 152 H (74-106) MG/DL Calcium 8.0 L (8.5-10.1) mg/dL WENDY Results - Last 24 hrs: Microbiology 06/05/20 00:39 Urine Culture - Preliminary Urine, Clean Catch MIXED RELL DAY 1 Med Orders - Current: Current Medications Acetaminophen (Tylenol) 650 mg PO Q4H PRN PRN Reason: Pain (Mild 1-3)/fever Albuterol (Proventil Neb Soln) 2.5 mg NEB Q4H PRN PRN Reason: Shortness Of Breath/wheezing Docusate Sodium (Colace) 100 mg PO BID PRN PRN Reason: Constipation Enoxaparin Sodium (Lovenox) 40 mg SUBCUT DAILY [facility] Last Admin: 06/06/20 08:15 Dose: 40 mg Documented by: Glipizide (Glucotrol) 5 mg PO BID [facility] Last Admin: 06/06/20 08:12 Dose: 5 mg Documented by: Sodium Chloride (Normal Saline) 1,000 mls @ 75 mls/hr IV ASDIRECTED [facility] Last Admin: 06/06/20 07:03 Dose: 75 mls/hr Documented by: Ceftriaxone Sodium 1 gm/ (Sodium Chloride) 50 mls @ 100 mls/hr IV Q24H [facility] Last Admin: 06/05/20 20:36 Dose: 100 mls/hr Documented by: Lorazepam (Ativan) 1 mg IVPUSH Q6H PRN PRN Reason: Vomiting Last Admin: 06/05/20 00:50 Dose: 1 mg Documented by: Morphine Sulfate (Morphine) 2 mg IVPUSH Q2H PRN PRN Reason: Pain (severe 7-10) Ondansetron HCl (Zofran Odt) 4 mg PO Q6H PRN PRN Reason: Nausea able to take PO Last Admin: 06/05/20 07:51 Dose: 4 mg Documented by: Ondansetron HCl (Zofran) 4 mg IV Q4H PRN PRN Reason: Nausea/Vomiting Oxycodone HCl (Oxycodone) 5 mg PO Q4H PRN PRN Reason: Pain (moderate 4-6) Pregabalin (Lyrica) 300 mg PO BID [facility] Last Admin: 06/06/20 08:18 Dose: 300 mg Documented by: Sodium Chloride (Saline Flush) 10 ml FLUSH ASDIRECTED PRN PRN Reason: Keep Vein Open Last Admin: 06/04/20 21:46 Dose: 10 ml Documented by: Spironolactone (Aldactone) 50 mg PO BIDDIURETIC [facility] Last Admin: 06/05/20 15:42 Dose: Not Given Documented by: Zolpidem Tartrate (Ambien) 2.5 mg PO BEDTIME PRN PRN Reason: Insomnia Last Admin: 06/05/20 22:03 Dose: 2.5 mg Documented by: Discontinued Medications Ceftriaxone Sodium (Rocephin) 1 gm IM ONETIME ONE Stop: 06/05/20 01:01 Last Admin: 06/05/20 00:59 Dose: 1 gm Documented by: Ceftriaxone Sodium (Rocephin) 1 gm IM Q24H [facility] Famotidine (Pepcid) 20 mg IVPUSH ONETIME ONE Stop: 06/04/20 21:52 Last Admin: 06/04/20 22:01 Dose: 20 mg Documented by: Famotidine (Pepcid) 20 mg PO ONETIME ONE Stop: 06/05/20 20:54 Last Admin: 06/05/20 21:15 Dose: 20 mg Documented by: Sodium Chloride (Normal Saline) 1,000 mls @ 999 mls/hr IV .BOLUS ONE Stop: 06/04/20 22:30 Last Admin: 06/04/20 21:39 Dose: 999 mls/hr Documented by: Sodium Chloride (Normal Saline) 1,000 mls @ 999 mls/hr IV .BOLUS ONE Stop: 06/04/20 23:40 Last Admin: 06/04/20 22:45 Dose: 999 mls/hr Documented by: Sodium Chloride (Normal Saline) 1,000 mls @ 125 mls/hr IV ASDIRECTED [facility] Last Admin: 06/05/20 08:47 Dose: 125 mls/hr Documented by: Ondansetron HCl (Zofran) 4 mg IVPUSH ONETIME ONE Stop: 06/04/20 21:32 Last Admin: 06/04/20 21:45 Dose: 4 mg Documented by: Ondansetron HCl (Zofran) 4 mg IVPUSH ONETIME ONE Stop: 06/04/20 22:45 Last Admin: 06/04/20 22:54 Dose: 4 mg Documented by: Potassium Chloride (Klor-Con M20) 40 meq PO ONETIME ONE Stop: 06/05/20 10:31 Last Admin: 06/05/20 11:13 Dose: 40 meq Documented by: Potassium Chloride (Klor-Con M20) 40 meq PO ONETIME ONE Stop: 06/06/20 08:46 Zolpidem Tartrate (Ambien) 2.5 mg PO ASDIRECTED PRN PRN Reason: Insomnia
[2020-06-06] MEDS: Spironolactone 25 MG Tab PO SCH (10:46)
== END 2020-06-06 12:40 | disposition home or self-care (01) ==
LOC: JP.ED 20:41 → JP.MS 22:59
PROVIDERS: ADMIT Internal Medicine; ATTEND Internal Medicine
DX: A08.4 Viral intestinal infection, unspecified (principal); N30.00 Acute cystitis without hematuria; E86.0 Dehydration; E11.42 Type 2 diabetes mellitus with diabetic polyneuropathy; Z98.84 Bariatric surgery status; Z88.5 Allergy status to narcotic agent; Z88.8 Allergy status to other drugs, medicaments and biological substances; Z79.84 Long term (current) use of oral hypoglycemic drugs; Z79.899 Other long term (current) drug therapy
CPT/HCPCS: 36415; 74018; 80048; 80053; 81001; 82962; 83690; 85025; 87086; 96361; 96365; 96372; 96375; 96376; 99217; 99219; 99224; 99284; 99285; A9270; G0378; J0696; J1650; J2060; J2405; J3490; J7030; J7050; 96374